=== PATIENT | female | born 1985 | race Caucasian/White ===

== ENCOUNTER → 2017-03-24 | Outpatient (CLI) | payer OTHER ==
--- NOTE | ~2017-03-24 | 2DMMODE ---
[facility] [address] [place] [address] 2 D/M-MODE ECHOCARDIOGRAM Name: TISHAANTONIO ZALDIVAR Room #: [facility]#: [id number] Admission: 03/24/17 Attend Phys: Alen No Discharge: Date of : 81 Date of Service: 03/24/17 1753 Report #: [id number] THIS REPORT FOR: //name// APPROVED REPORT Study performed: 03/24/2017 14:37:54 EXAM: Comprehensive 2D, Doppler, and color-flow Echocardiogram Patient Location: Out-Patient Status: routine BSA: 1.53 HR: 59 bpm BP: 107/74 mmHg Other Information Study Quality: Fair Indications Arrhythmia 2D Dimensions RVDd: 28.90 mm LVEF(%): 71.24 (>50%) IVSd: 7.15 (7-11mm) LVOT Diam: 18.15 (18-24mm) LVDd: 41.95 mm PWd: 5.85 (7-11mm) LVDs: 25.09 (25-40mm) Aortic Root: 25.29 mm IVC: 1.80 mm Alvarado's LVEF: 71.24 % Volumes Left Atrial Volume (Systole) Single Plane 4CH: 25.69 mL Single Plane 2CH: 25.94 mL LA ESV Index: 18.00 mL/m2 Aortic Valve AoV Peak Mark.: 1.30 m/s AO Peak Gr.: 6.80 mmHg LVOT Max P.04 mmHg LVOT Max V: 1.01 m/s KISHOR Vmax: 1.99 cm2 Mitral Valve E/A Ratio: 2.0 MV Decel. Time: 238.51 ms MV E Max Mark.: 1.23 m/s [facility] [place] [address] 2 D/M-MODE ECHOCARDIOGRAM Name: ANTONIO GILESBETH Room #: [facility].#: [id number] Admission: 03/24/17 Attend Phys: Alen No Discharge: Date of : 81 Date of Service: 03/24/17 1753 Report #: [id number] A Mark.: 0.61 m/s MV PHT: 69.17 ms Pulmonary Valve PV Peak Mark.: 0.91 m/s PV Peak Gr.: 3.33 mmHg Pulmonary Vein P Vein S: 0.62 m/s P Vein A: 0.22 m/s P Vein D: 0.56 m/s P Vein A Dur.: 101.5 msec P Vein S/D Ratio: 1.11 Tricuspid Valve TR Peak Mark.: 2.32 m/s RAP Estimate: 5.00 mmHg TR Peak Gr.: 21.52 mmHg PA Pressure: 27.00 mmHg Left Ventricle The left ventricle is normal size. There is normal LV segmental wall motion. There is normal left ventricular wall thickness. The left ventricular systolic function is normal. The left ventricular ejection fraction is within the normal range. LVEF is 60-65%. The left ventricular diastolic function is normal. Right Ventricle The right ventricle is normal size. The right ventricular systolic function is normal. Atria The left atrium size is normal. The right atrium size is normal. Aortic Valve The aortic valve is normal in structure. No aortic regurgitation is present. There is no aortic valvular stenosis. Mitral Valve The mitral valve is normal in structure. No mitral regurgitation. No evidence of mitral valve stenosis. Tricuspid Valve The tricuspid valve is normal in structure. There is trace tricuspid regurgitation. The right atrial pressure is estimated at 5 mmHg. There is no pulmonary hypertension with an estimated PAP of 25 mmHg. Pulmonic Valve [address] [address] 2 D/M-MODE ECHOCARDIOGRAM Name: ANTONIO GILES Room #: REG [facility]#: [id number] Admission: 03/24/17 Attend Phys: Alen No Discharge: Date of : 81 Date of Service: 03/24/17 1753 Report #: [id number] The pulmonary valve is normal in structure. There is no pulmonic valvular regurgitation. Great Vessels The aortic root is normal in size. IVC is normal in size and collapses >50% with inspiration. Pericardium There is no pericardial effusion. <Conclusion> 1. Normal echocardiogram with Doppler. EF 65% 2. Pulmonary artery pressure of 25mmHg 3. No pericardial effusion <ELECTRONICALLY SIGNED> By: Preston Bergeron MD, FACC 03/24/171752 52 52 Preston Bergeron MD, FACC /INF
== END ==
LOC: CV 03-09 06:56
DX: I49.9 Cardiac arrhythmia, unspecified (principal); I45.6 Pre-excitation syndrome